=== PATIENT | male | born 1970 | race Caucasian/White ===

== ENCOUNTER 2019-03-25 20:58 | Emergency (ER) | payer OTHER ==
[~2019-03-25] VITALS: Ht 185.4 cm; Wt 86.2 kg
[~2019-03-25 20:58] MED LIST: AMOX500 PO; Bactrim Ds Tab1 EACH PO; FAMO40 PO; HYDACE5 PO; IBUP600 PO; Keflex500 MG PO; NAPR500 PO; OXYACE5T PO; SILSUL1TC TOP
== END 2019-03-25 21:40 | disposition home or self-care (01) ==
LOC: ER 20:58
DX: A54.9 Gonococcal infection, unspecified (principal); F17.210 Nicotine dependence, cigarettes, uncomplicated
CPT/HCPCS: 96372; 99283-25; J0696

== ENCOUNTER 2022-06-19 11:21 | Emergency (ER) | payer OTHER ==
[~2022-06-19] VITALS: Ht 185.4 cm; Wt 81.7 kg
[~2022-06-19 11:21] MED LIST changes: +CEPH500 PO; +SULTRIDS PO
[2022-06-19] MEDS ORDERED: CEPH500 PO (12:10)
[2022-06-19] MEDS ORDERED: Bactrim Ds Tab1 EACH PO (12:10)
[2022-06-19] MEDS ORDERED: Mupirocin22 GM TOP (12:10)
== END 2022-06-19 12:16 | disposition home or self-care (01) ==
LOC: ER 11:21
DX: L03.011 Cellulitis of right finger (principal); L03.012 Cellulitis of left finger; F17.210 Nicotine dependence, cigarettes, uncomplicated
CPT/HCPCS: 10060; 99282-25; A9270

== ENCOUNTER 2022-11-21 16:22 | Emergency (ER) | payer OTHER ==
[~2022-11-21] VITALS: Ht 185.4 cm; Wt 79.4 kg
[~2022-11-21 16:22] MED LIST changes: +Mupirocin22 GM TOP
[2022-11-21] MEDS ORDERED: CEPH500 PO (17:48)
== END 2022-11-21 18:00 | disposition home or self-care (01) ==
LOC: ER 16:22
DX: L02.416 Cutaneous abscess of left lower limb (principal); F17.210 Nicotine dependence, cigarettes, uncomplicated
CPT/HCPCS: A9270

== ENCOUNTER 2022-12-18 15:44 | Emergency (ER) | payer OTHER ==
[~2022-12-18] VITALS: Ht 185.4 cm; Wt 80.7 kg
[2022-12-18 15:48] VITALS: BP 138/84
[2022-12-18] MEDS ORDERED: SULTRIDS PO (19:26)
== END 2022-12-18 19:40 | disposition home or self-care (01) ==
LOC: ER 15:44
DX: L02.511 Cutaneous abscess of right hand (principal); M79.644 Pain in right finger(s); F17.210 Nicotine dependence, cigarettes, uncomplicated
CPT/HCPCS: 10060; 73140; 99283-25; A9270

== ENCOUNTER 2022-12-25 15:44 | Emergency (ER) | payer OTHER ==
[~2022-12-25] VITALS: Ht 185.4 cm; Wt 81.7 kg
[2022-12-25 15:59] VITALS: BP 140/88
== END 2022-12-25 17:59 | disposition home or self-care (01) ==
LOC: ER 15:44
DX: L03.011 Cellulitis of right finger (principal); Z79.899 Other long term (current) drug therapy; F17.210 Nicotine dependence, cigarettes, uncomplicated
CPT/HCPCS: 10060; 99282-25